=== PATIENT | female | born 1940 | race Caucasian/White ===

== ENCOUNTER → 2016-11-05 | Day surgery (SDC) | payer MEDICARE, OTHER ==
[~2016-11-05] VITALS: Ht 165.1 cm; Wt 60.8 kg
[~2016-11-05] MED LIST: 0.9% Sodium Chloride 1,000 ML IV PRN; ASPI-973 PO; CALC-975 PO; CALC500T9 PO; CHOL100045 PO; MULT-1018 PO; OMEP1COM PO; PROP40TA5 PO; SIMV20TA4 PO; Sodium Chloride LOK Flush 10 mL Syringe IV PRN; fentaNYL-PF 50 mCg/mL 2 mL Inj IVPUSH PRN
[2016-11-05 07:43] VITALS: BP 131/70; PULSE 67; RESP 17; O2SAT 96
[2016-11-05 08:46] VITALS: BP 113/58; PULSE 60; RESP 13; O2SAT 99
[2016-11-05 08:54] VITALS: BP 109/55; PULSE 56; RESP 15; O2SAT 99
[2016-11-05 09:03] VITALS: BP 116/60; PULSE 61; RESP 15; O2SAT 100
--- NOTE | 2016-11-05 09:07 | ENDO ---
[address] [address] ENDOSCOPY PROCEDURE PATIENT: PAVEL MAR : 1940 MR#: [id number] ADMIT: 11/05/2016 JOB ID: [id number] PRIMARY PROVIDER: Isaiah Anthony MD PROCEDURE: Colonoscopy with hot snare polypectomy, cold snare polypectomy. INDICATIONS: A 76-year-old female who last had a colonoscopy in 2003. She has experienced blood per rectum. Endoscopic interrogation is pursued. EQUIPMENT: [employer]-H180-AL. SEDATION: 5 mg Versed, 100 mcg fentanyl. COMPLICATIONS: None identified. BOWEL PREPARATION: Fair, adequate exam. PROCEDURE INFORMATION: After the risks and benefits were explained, written and verbal informed consent was obtained. The patient was brought into the endoscopy suite and placed into the left lateral decubitus position. Sedation was achieved using the above-stated medications with the addition of oxygen via nasal cannula. A digital rectal examination was accomplished. Apart from some mild internal hemorrhoids, no significant pathology appreciated. The scope was introduced into the rectum and we immediately encountered a moderate sized polyp right near the dentate line. This was soft. The scope was then advanced to the cecum as identified by the appendiceal orifice and ileocecal valve. The scope was slowly withdrawn to carefully examine the mucosa for any defects or lesions. Multiple direct views were made through the dentate line for exclusion of pathology. The colon was decompressed, the scope removed from the patient who tolerated the procedure well. FINDINGS: The patient had fairly extensive diverticulosis through the left colon. There was a diminutive polyp in the ascending, removed with cold snare and then in the sigmoid, two other small polyps removed with hot snare. These were labeled "colon polyps." There was then a larger perhaps 10-12 mm, short, pedunculated polyp near the rectosigmoid region, removed with hot snare. The final polyp was the 7 mm polyp adjacent to the dentate line which was additionally removed with hot snare but submitted separately. The mucosa in the rectum was otherwise unremarkable. No evidence of proctitis or colitis. ENDOSCOPIC DIAGNOSES: 1. Colon polyps. 2. Diverticulosis. 3. Hemorrhoids. RECOMMENDATIONS: 1. Await histopathology. 2. Repeat colonoscopy will likely be suggested for three years.
--- NOTE | 2016-11-06 10:34 | PATH ---
SURGICAL PATHOLOGY Attending Physician:Toyin Jaime CASE STATUS: Signed Out PATIENT NAME: PAVEL MAR PID: [id number] : 1940 DATE COLLECTED:11/05/2016 16:26 SPECIMEN: 1: Colon, Polyp 2: Colon, Polyp 3: Rectum, Biopsy CLINICAL HISTORY: 1. COLON POLYPS 2. RECTO-SIGMOID POLYP 3. RECTAL POLYP FINAL DIAGNOSIS: 1.COLON POLYPS: TUBULAR ADENOMA INVOLVING ALL BIOPSY FRAGMENTS. 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 3.RECTAL POLYP: TUBULAR ADENOMA. ICD10 D12.7 GROSS DESCRIPTION: The specimen is received in three formalin filled containers labeled with the patient's name. 1). The specimen is sublabeled "colon polyps" and consists of 4 portions of tissue which aggregate to 0.6 x 0.6 x 0.5 CM. The specimen is entirely submitted in cassette 1A. 2). The specimen is sublabeled "rectosigmoid polyp" and consists of 3 portions of tissue which aggregate to 0.7 x 0.6 x 0.5 CM. The largest piece is bisected and all fragments are entirely submitted in cassette 2A. 3). The specimen is sublabeled "rectal polyp" and consists of 2 portions of tissue which aggregate to 0.6 x 0.6 x 0.5 CM. The specimen is entirely submitted in cassette 3A. 11/05/2016 DAC MICRO DESCRIPTION: See diagnosis. ICD-9 CODES: CPT CODES: 1: 29068 2: 78919 3: 93247 Electronically Signed Out Aramis Altamirano MD [facility] [address], [place] [address] Technical component performed at [facility], [facility] [address], [place], [address]
== END | disposition home or self-care (01) ==
LOC: END 00:31
PROVIDERS: ATTEND Internal Medicine Gastroenterology
DX: D12.4 Benign neoplasm of descending colon (principal); D12.8 Benign neoplasm of rectum; K63.5 Polyp of colon; K57.30 Diverticulosis of large intestine without perforation or abscess without bleeding; K64.8 Other hemorrhoids; Z79.82 Long term (current) use of aspirin
CPT/HCPCS: 45385; 99153; G0500; J2250; J3010; J7030